=== PATIENT | female | born 1965 | race Caucasian/White ===

== ENCOUNTER 2020-03-12 10:18 | Emergency (ER) | payer OTHER ==
[~2020-03-12] VITALS: Ht 170.2 cm; Wt 62.1 kg
[2020-03-12 10:24] VITALS: BP 125/90
== END 2020-03-12 10:59 | disposition home or self-care (01) ==
LOC: ER 10:20
DX: J02.9 Acute pharyngitis, unspecified (principal); Z20.828 Contact with and (suspected) exposure to other viral communicable diseases; I73.00 Raynaud's syndrome without gangrene
CPT/HCPCS: 99283; C9803; U0003